=== PATIENT | male | born 1995 | race Caucasian/White ===

== ENCOUNTER 2022-04-22 15:32 | Emergency (ER) | payer BC, OTHER ==
[~2022-04-22] VITALS: Ht 180.3 cm; Wt 68.0 kg
--- OUTSIDE RECORDS SUMMARY | 2022-04-22 17:00 | XMS ---
PreManage Notification: RICHIE LANG Security Inventory Administrator Events No recent Security Events currently on file CRITERIA MET - [facility] PROVIDERS WALTER WIGGINS Family Medicine Current PHONE: Unknown TALI BENAVDIES Internal Medicine Current PHONE: [phone] DANIELLE CATALAN Associate Creative Director Current PHONE: Unknown Eitan Grissom DO Family Medicine Current PHONE: Unknown MANISHA COLEY Physician Associate Creative Director: Medical Current PHONE: Unknown HOLGER RAMOS [facility] Current J PHONE: Unknown Jaclyn has no Care Guidelines for this patient. Rakel VISIT COUNT (12 MO.) Kalin Reddy TOTAL 1 NOTE: Visits indicate total known visits. ED/UCC VISIT TRACKING (12 MO.) 04/22/2022 15:33 JOSÉ MIGUEL [facility] TYPE: Emergency COMPLAINT: - FLU SYMTPOMS INPATIENT VISIT TRACKING (12 MO.) No inpatient visits to display in this time frame [email or web address]
== END 2022-04-22 18:22 | disposition left against medical advice (07) ==
LOC: ED 15:32
DX: Z53.21 Procedure and treatment not carried out due to patient leaving prior to being seen by health care provider (principal)
CPT/HCPCS: 87502; C9803; U0003